=== PATIENT | male | born 2000 | race Caucasian/White ===

== ENCOUNTER 2023-04-30 01:28 | Observation (INO) ==
[2023-04-30] MEDS ORDERED: ONDANSETRON INJ 2 MG/ML 2 ML VIAL IV STA (01:49)
[2023-04-30] MEDS ORDERED: PANTOprazole 40 MG in SYRINGE 0 ML IV ONE (01:49)
[2023-04-30] MEDS ORDERED: SODIUM CHLORIDE 0.9% 1,000 ML IV STA (01:49)
[2023-04-30 02:12] LABS: Basophils # (auto) 0.04 K/uL (0.00-0.20); Basophils % (auto) 0.3 %; Eosinophils # (auto) 0.01 K/uL (0.00-0.50); Eosinophils % (auto) 0.1 %; Hematocrit (blood only) 40.7 % (42.0-52.0); Hemoglobin 14.5 g/dl (14.0-18.0); Immature Granulocytes # (auto) 0.05 K/uL (0.01-0.20); Immature Granulocytes % (auto) 0.4 %; Lymphocytes # (auto) 1.26 K/uL (1.20-3.40); Lymphocytes % (auto) 9.2 %; Mean Corpuscular Hemoglobin 30.5 pg (25.0-34.0); Mean Corpuscular Hgb Conc 35.6 g/dL (32.0-36.0); Mean Corpuscular Volume 85.5 fL (80.0-100.0); Mean Platelet Volume 9.7 fL (9.4-12.4); Monocytes # (auto) 0.39 K/uL (0.11-0.59); Monocytes % (auto) 2.8 %; Neutrophils # (auto) 11.95 K/uL (1.40-6.50); Neutrophils % (auto) 87.2 %; Platelet Count 247 K/uL (130-400); RDW Standard Deviation 34.2 fL (36.4-46.3); Red Blood Count 4.76 M/uL (4.70-6.10)
--- NOTE | 2023-04-30 02:17 | CT Scan Report ---
CT SCAN OF THE ABDOMEN AND PELVIS WITHOUT IV CONTRAST CLINICAL HISTORY: Lower abdominal pain. COMPARISON STUDY: Abdominal radiograph dated 06/24/2020 TECHNIQUE: CT scan of the abdomen and pelvis is performed from the lung bases to the proximal femora. Images are reviewed in the axial, sagittal, and coronal planes. IV contrast was not administered for this examination. A dose lowering technique was utilized adhering to the principles of ALARA. CT DOSE: 933.44 mGy.cm FINDINGS: Lung bases: The heart is normal in size and without pericardial effusion. The lung bases are clear. Liver: The unenhanced liver is normal in size, contour, and attenuation. There is no intrahepatic juanjo iary ductal dilatation. Gallbladder: Unremarkable. Spleen: Normal in size and attenuation. Pancreas: Unremarkable. Adrenal glands: Unremarkable. Kidneys: The unenhanced kidneys are normal in size and without hydronephrosis. There are no renal vicki culi identified. There is no evidence of contour deforming renal mass lesion. Abdominal vasculature: The abdominal aorta is normal in course and caliber. Bowel: The small bowel and colon are normal in course and caliber. The appendix is dilated and fluid -filled, measuring up to 1.4 cm in diameter. This is best seen on image #252. There are calcified rima endicoliths. The appendiceal wall is thickened and there is faint periappendiceal inflammation. Findi ngs are consistent acute appendicitis. No abscess is seen. Peritoneum: No intraperitoneal free air is seen. There is trace free fluid in the pelvis. Lymphadenopathy: None. Pelvic viscera: The bladder, prostate, and seminal vesicles are normal as visualized. Skeletal structures: No lytic or blastic lesions are seen. IMPRESSION: 1. Acute appendicitis. There is no evidence of abscess or perforation. 2. A small volume of free fluid in the pelvis is nonspecific and likely reactive. ACT 112: Negative or not required by law. Electronically signed by: Juan Antonio Benitez M.D. 04/30/2023 2:15 AM
[2023-04-30 02:20] LABS: Alanine Aminotransferase 21 U/L (7-52); Albumin Globulin Ratio 1.5 (0.9-2); Alkaline Phosphatase 74 U/L (34-104); Anion Gap 15 (3-11); Aspartate Aminotransferase 27 U/L (13-39); BUN Creatinine Ratio 22.8 (10-20); Bilirubin,Total 0.7 mg/dl (0.2-1.0); Blood Urea Nitrogen 23 mg/dl (6-23); Calcium 10.3 mg/dl (8.6-10.3); Carbon Dioxide 20 mmol/L (21-32); Chloride 102 mmol/L (98-107); Est GFR (African American) 120.9 ml/min; Est GFR (Non-African American) 104.4 ml/min; Globulin 3.3 gm/dl (2.5-4.0); Glucose 148 mg/dl (70-99(Fasting)); Lipase 17 U/L (11-82); Potassium 3.4 mmol/L (3.5-5.1); Sodium 137 mmol/L (136-145); Total Protein 8.3 gm/dl (6.0-8.3)
[2023-04-30 02:26] LABS: Troponin I High Sensitivity 2.9 pg/ml (0-20)
[2023-04-30] MEDS ORDERED: cefOXitin 2,000 MG/60 ML BAG IV STA (02:37)
[2023-04-30] MEDS: MoRPHine SULFATE 4 MG/ML 1 ML CARP\\VIAL IV PRN ×2 (02:55→05:03)
--- NOTE | 2023-04-30 04:53 | History & Physical Report ---
Date of Service April 30, 2023 Assessment & Plan (1) Acute appendicitis: Plan 23-year-old gentleman presents with acute appendicitis. We discussed the risks and benefits of a laparoscopic, possible open appendectomy. We discussed the postoperative recovery and restrictions. All his questions were answered. Consent has been obtained. We will take him to the operating room at the earliest convenience. History of Present Illness Primary Care Provider: [facility] 23-year-old [employer] student presents with a 10-hour history of severe mid to right lower abdominal pain. It began as a crampy type feeling in his mid abdomen and progressed to severe abdominal pain. He developed severe nausea and vomiting as well as chills. He last ate at 5 PM. He has a bicuspid aortic valve. He denies chest pain or shortness of breath. He does heavy exercise without issue. He has had a prior hernia repair bilaterally as an . Allergies Allergy/AdvReac Type Severity Reaction Status Date / Time No Known Allergies Allergy Unverified 04/30/23 02:35 Home Medications Medication Instructions Recorded Confirmed Type No Known Home Medications 09/10/19 04/30/23 History Past Med/Surg History Medical History (Updated 04/30/23 @ 04:54 by David Regalado MD) No pertinent past medical history Surgical History No pertinent past surgical history Family History Other No pertinent family history Social History Smoking Status: Never smoker Tobacco Type: Cigarettes and E-cigarettes / Vaping Preferred Language: Turkmen Feels Safe at Home: Yes Review of Systems Review of Systems: All systems reviewed & are unremarkable except as noted in HPI & below Physical Exam Constitutional: WD/WN, vitals as above Eyes: PERRL, conjunctivae normal, anicteric sclerae Neck: trachea midline, no thyromegaly Respiratory: normal respiratory effort; no respiratory distress and no labored breathing Cardiovascular: Rate/Rhythm: regular rate and regular rhythm Gastrointestinal (Abdomen): Inspection/Auscultation: abdomen normal to inspection; abdomen not distended Percussion/Palpation: + abdomen tender (Lower abdomen) and abdomen soft; no guarding and abdomen not rigid Skin: no rashes, warm and dry Psychiatric: A+Ox3, euthymic affect Results & Data Results & Data Vital Signs (Past 12 Hours) Vital Signs Temp Pulse Resp BP Pulse Ox O2 Del Method 04/30/23 03:30 59 L 19 124/45 L 100 04/30/23 03:00 62 23 138/60 100 04/30/23 02:30 52 L 20 132/62 100 04/30/23 01:42 58 L 26 H 100 04/30/23 01:42 127/52 L 04/30/23 01:49 97 Room Air 04/30/23 01:41 58 L 04/30/23 01:33 35.5 C L 67 22 99/28 L 100 Room Air Laboratory Results 04/30/23 04/30/23 04/30/23 Range/Units 02:33 01:44 01:44 WBC (4.8-10.8) K/ul RBC (4.70-6.10) M/uL Hgb (14.0-18.0) g/dl Hct (42.0-52.0) % MCV (80.0-100.0) fL MCH (25.0-34.0) pg MCHC (32.0-36.0) g/dL RDW Std Deviation (36.4-46.3) fL RDW Coeff of Nathalie (11.5-14.5) % Plt Count (130-400) K/uL MPV (9.4-12.4) fL Immature Gran % (Auto) % Neut % (Auto) % Lymph % (Auto) % [place] % (Auto) % Eos % (Auto) % Baso % (Auto) % Neut # (Auto) (1.40-6.50) K/uL Lymph # (Auto) (1.20-3.40) K/uL [place] # (Auto) (0.11-0.59) K/uL Eos # (Auto) (0.00-0.50) K/uL Baso # (Auto) (0.00-0.20) K/uL Immature Gran # (Auto) (0.01-0.20) K/uL Sodium 137 (136-145) mmol/L Potassium 3.4 L (3.5-5.1) mmol/L Chloride 102 (98-107) mmol/L Carbon Dioxide 20 L (21-32) mmol/L Anion Gap 15 H (3-11) BUN 23 (6-23) mg/dl Creatinine 1.01 (0.6-1.4) mg/dl Est Cr Clr Drug Dosing Not Reportable Est GFR ( Amer) 120.9 ml/min Est GFR (Non-Af Amer) 104.4 ml/min BUN/Creatinine Ratio 22.8 H (10-20) Glucose 148 H (70-99(Fasting)) mg/dl Lactate 1.7 (0.4-2.0) mmol/L Calcium 10.3 (8.6-10.3) mg/dl Total Bilirubin 0.7 (0.2-1.0) mg/dl AST 27 (13-39) U/L ALT 21 (7-52) U/L Alkaline Phosphatase 74 (34-104) U/L Troponin I High Sens 2.9 (0-20) pg/ml Total Protein 8.3 (6.0-8.3) gm/dl Albumin 5.0 (3.4-5.0) gm/dl Globulin 3.3 (2.5-4.0) gm/dl Albumin/Globulin Ratio 1.5 (0.9-2) Lipase 17 (11-82) U/L Ethyl Alcohol mg/dL < 10.0 (<10.0) mg/dl 04/30/23 Range/Units 01:44 WBC 13.70 H (4.8-10.8) K/ul RBC 4.76 (4.70-6.10) M/uL Hgb 14.5 (14.0-18.0) g/dl Hct 40.7 L (42.0-52.0) % MCV 85.5 (80.0-100.0) fL MCH 30.5 (25.0-34.0) pg MCHC 35.6 (32.0-36.0) g/dL RDW Std Deviation 34.2 L (36.4-46.3) fL RDW Coeff of Nathalie 11.0 L (11.5-14.5) % Plt Count 247 (130-400) K/uL MPV 9.7 (9.4-12.4) fL Immature Gran % (Auto) 0.4 % Neut % (Auto) 87.2 % Lymph % (Auto) 9.2 % [place] % (Auto) 2.8 % Eos % (Auto) 0.1 % Baso % (Auto) 0.3 % Neut # (Auto) 11.95 H (1.40-6.50) K/uL Lymph # (Auto) 1.26 (1.20-3.40) K/uL [place] # (Auto) 0.39 (0.11-0.59) K/uL Eos # (Auto) 0.01 (0.00-0.50) K/uL Baso # (Auto) 0.04 (0.00-0.20) K/uL Immature Gran # (Auto) 0.05 (0.01-0.20) K/uL Sodium (136-145) mmol/L Potassium (3.5-5.1) mmol/L Chloride (98-107) mmol/L Carbon Dioxide (21-32) mmol/L Anion Gap (3-11) BUN (6-23) mg/dl Creatinine (0.6-1.4) mg/dl Est Cr Clr Drug Dosing Est GFR ( Amer) ml/min Est GFR (Non-Af Amer) ml/min BUN/Creatinine Ratio (10-20) Glucose (70-99(Fasting)) mg/dl Lactate (0.4-2.0) mmol/L Calcium (8.6-10.3) mg/dl Total Bilirubin (0.2-1.0) mg/dl AST (13-39) U/L ALT (7-52) U/L Alkaline Phosphatase (34-104) U/L Troponin I High Sens (0-20) pg/ml Total Protein (6.0-8.3) gm/dl Albumin (3.4-5.0) gm/dl Globulin (2.5-4.0) gm/dl Albumin/Globulin Ratio (0.9-2) Lipase (11-82) U/L Ethyl Alcohol mg/dL (<10.0) mg/dl Diagnostic Findings CT SCAN OF THE ABDOMEN AND PELVIS WITHOUT IV CONTRAST CLINICAL HISTORY: Lower abdominal pain. COMPARISON STUDY: Abdominal radiograph dated 06/24/2020 TECHNIQUE: CT scan of the abdomen and pelvis is performed from the lung bases to the proximal femora. Images are reviewed in the axial, sagittal, and coronal planes. IV contrast was not administered for this examination. A dose lowering technique was utilized adhering to the principles of ALARA. CT DOSE: 933.44 mGy.cm FINDINGS: Lung bases: The heart is normal in size and without pericardial effusion. The lung bases are clear. Liver: The unenhanced liver is normal in size, contour, and attenuation. There is no intrahepatic biliary ductal dilatation. Gallbladder: Unremarkable. Spleen: Normal in size and attenuation. Pancreas: Unremarkable. Adrenal glands: Unremarkable. Kidneys: The unenhanced kidneys are normal in size and without hydronephrosis. There are no renal calculi identified. There is no evidence of contour deforming renal mass lesion. Abdominal vasculature: The abdominal aorta is normal in course and caliber. Bowel: The small bowel and colon are normal in course and caliber. The appendix is dilated and fluid-filled, measuring up to 1.4 cm in diameter. This is best seen on image #252. There are calcified appendicoliths. The appendiceal wall is thickened and there is faint periappendiceal inflammation. Findings are consistent acute appendicitis. No abscess is seen. Peritoneum: No intraperitoneal free air is seen. There is trace free fluid in the pelvis. Lymphadenopathy: None. Pelvic viscera: The bladder, prostate, and seminal vesicles are normal as visua lized. Skeletal structures: No lytic or blastic lesions are seen. IMPRESSION: 1. Acute appendicitis. There is no evidence of abscess or perforation. 2. A small volume of free fluid in the pelvis is nonspecific and likely reactive.
[2023-04-30] MEDS ORDERED: LIDOCAINE 2% 2 ML VIAL/AMP(20MG/ML) INFIL ONE (05:18)
[2023-04-30] MEDS ORDERED: PROPOFOL IV EMULSION 10 MG/ML 20 ML VIAL IV ONE (05:18)
[2023-04-30] MEDS ORDERED: fentaNYL citrate PF 100 MCG/2 ML VIAL ONE (05:19)
[2023-04-30] MEDS ORDERED: ROCURONIUM BROMIDE 10 MG/ML 5 ML VIAL IV ONE (05:23)
[2023-04-30] MEDS ORDERED: BUPIVACAINE/EPINEPHRINE 0.5% MPF 1:200,000 30 ML VIAL ONE (05:26)
[2023-04-30] MEDS ORDERED: ONDANSETRON INJ 2 MG/ML 2 ML VIAL IV PRN ×2 (05:31→08:09)
[2023-04-30] MEDS ORDERED: ATROPINE SULFATE 0.1 MG/ML 10ML SYR IV PRN (05:31)
[2023-04-30] MEDS ORDERED: fentaNYL citrate PF 100 MCG/2 ML VIAL IV PRN (05:31)
[2023-04-30] MEDS ORDERED: ePHEDrine sulfate 50 MG/ML AMP IV PRN (05:31)
--- NOTE | 2023-04-30 05:38 | Anesthesiology Consultation ---
Date of Service April 30, 2023 Assessment & Plan Chart Review Chart Review: Acceptable Risk for Surgery Consults Requested none ASA [id number] Proposed Anesthesia Anesthesia Type: General Risk / Benefits Reviewed With: PT / POA / Parent / Guardian, Accepts Plan and Informed Consent Obtained History Surgery Operation Date: 04/30/23 06:00 Proposed Procedures p Laparoscopic Appendectomy - David Regalado MD Height/Weight Height: 6 ft Allergies Allergy/AdvReac Type Severity Reaction Status Date / Time No Known Allergies Allergy Unverified 04/30/23 02:35 Medications Home Medications Medication Instructions Recorded Confirmed Last Taken No Known Home Medications 09/10/19 04/30/23 Unknown Active Medications Generic Name Dose Route Start Last Admin Trade Name Freq PRN Reason Stop Dose Admin Morphine Sulfate 4 mg 04/30/23 01:49 04/30/23 05:03 Morphine Sulfate 4 Mg/Ml 1 Ml Carp\Vial IV 05/14/23 01:48 4 mg Q15M PRN Administration Pain NPO Date Last Intake of Fluids: 04/29/23 Time Last Intake of Fluids: 20:00 Date Last Intake of Solids: 04/29/23 Time Last Intake of Solids: 20:00 Past Medical History Medical History No pertinent past medical history Exercise / Class Metabolic Activity 1 > 8 Run/Swim/Ski/Tennis Past Family History Family History Other No pertinent family history Past Surgical History Surgical History No pertinent past surgical history Past Anesthesia History No Hx of Anesthesia Complications and No Family Hx of Anesthesia Complications History of PONV No Hx of PONV and No Hx of Motion Sickness Social History Smoking Status: Never smoker tobacco type: e-cigarettes Physical Exam Vital Signs Last Vital Signs Temp 95.9 F L 04/30/23 01:33 Pulse 59 L 04/30/23 03:30 Resp 19 04/30/23 03:30 BP 128/74 04/30/23 05:00 Pulse Ox 100 04/30/23 03:30 O2 Del Method Room Air 04/30/23 05:21 ENMT Mouth: no dentition abnormality Thyromental Distance: > or= 3.5 Finger Breadths Mallampati Class: II Neck normal visual inspection Respiratory normal respiratory effort Auscultation: lungs clear to auscultation bilaterally Cardiovascular Rate/Rhythm: regular rate and regular rhythm Testing Laboratory Results 04/30/23 01:44 04/30/23 01:44
[2023-04-30] MEDS ORDERED: SUCCINYLCHOLINE CHLORIDE 20 MG/ML 10 ML VIAL IV ONE (06:07)
[2023-04-30] MEDS ORDERED: ONDANSETRON INJ 2 MG/ML 2 ML VIAL ONE (06:07)
[2023-04-30] MEDS ORDERED: GLYCOPYRROLATE 0.2 MG/ML VIAL ONE (06:31)
[2023-04-30] MEDS ORDERED: NEOSTIGMINE METHYLSULFATE 1 MG/ML 10ML VIAL ONE (06:31)
--- NOTE | 2023-04-30 06:42 | Post Operative Brief Note ---
Immediate Post Op Note v1 Date of Surgery April 30, 2023 Pre & Post Diagnosis Operation Date: 04/30/23 06:00 Pre-Op Diagnosis: Acute appendicitis Post-Op Diagnosis: Acute appendicitis I identified the patient and participated in the time-out.: Yes Procedure Operation Date: 04/30/23 06:00 Actual Procedures p Laparoscopic Appendectomy - David Regalado MD Surgeon David Regalado MD Media Services Coordinator None Estimated Blood Loss 5 Findings Consistent with Post-Op Diagnosis Thick-walled distended appendix Drains Goodson Catheter (goodson catheter inserted prior to procedure without difficulty by Sangeetha Doty, TUMBLER DYEING MACHINE OPERATOR. Urine return clear, yellow.)
--- NOTE | 2023-04-30 06:42 | Operative Report ---
Post Operative Report Pre & Post Diagnosis Operation Date: 04/30/23 06:00 Pre-Op Diagnosis: Acute appendicitis Post-Op Diagnosis: Acute appendicitis I identified the patient and participated in the time-out.: Yes Procedure Operation Date: 04/30/23 06:00 Actual Procedures p Laparoscopic Appendectomy - David Regalado MD Surgeon David Regalado MD Per Diem None Estimated Blood Loss 5 Findings Consistent with Post-Op Diagnosis Thick-walled, distended appendix Specimens Appendix Drains None Anesthesia Type General Complications No immediate complications Description of Procedure The patient was taken to the operating room, and placed supine on the operating table. A timeout was performed, perioperative antibiotics were administered, SCD boots were placed. After adequate anesthesia and analgesia was obtained, the abdomen was prepped and draped in the normal sterile fashion. A 1 cm incision was made in the supraumbilical region and carried down to the level of the fascia. A trach hook was used to grasp the fascia and elevated and a varies needle was used to enter the abdominal cavity. The abdomen was insufflated to a pressure of 15 mmHg, and a 5 mm trocar was placed in this location. A 5 mm 30 degree laparoscope was placed into the abdominal cavity, and the abdomen was surveyed. The patient was placed in Trendelenburg and slightly to the left. One 5 mm troc ar was placed in the right upper quadrant, and one 12 mm trocar was placed in the left lower quadrant under direct visualization. The right colon was identified and traced down to the cecum. The appendix was identified and elevated anteriorly and medially. A window was created at the base of the appendix with a [place] dissector. The Endo DENIS stapler was used to transect the appendix at its base through noninflamed tissue, and subsequently the mesoappendix. The appendix was placed in an Endo Catch bag, and removed via the left lower quadrant port site. Attention was turned to hemostasis, which was excellent. The abdomen was copiously irrigated and suctioned free, and again hemostasis was found to be excellent. All trochars removed under direct visualization. The abdomen was desufflated. The fascia in the 12 mm port site was closed with a 0 Vicryl suture. The skin was closed with a running 4-0 Monocryl subcuticular stitch. Dermabond was applied. The patient tolerated the procedure without complication, and was transferred in stable condition to the PACU. All instrument, needle, and sponge counts were correct at the end of the case. I attest to the content of the Intraoperative Record and any orders documented therein. Any exceptions are noted below.
--- NOTE | 2023-04-30 07:05 | Emergency Department Note ---
History of Present Illness General Chief complaint: Abdominal Pain Stated complaint: ABD PAIN Time Seen by Provider: 04/30/23 01:40 History of Present Illness Maximum Pain Intensity: 10 This is a 23-year-old male presenting to the emergency department for evaluation of abdominal pain. Patient rates the discomfort a 10/10, and is causing him significant nausea and vomiting. Pain is worse in the mid aspect of the upper abdomen. Patient denies marijuana or alcohol use. No recent fevers or chills. Patient's symptoms have been slowly worsening over the past 4 to 5 hours. He last ate food around 5 PM on 04/29/2023. Patient states that he is usually healthy. He does have a bicuspid aortic valve. No known travel history. He has not taken anything [id number] for symptoms. Home Medications Medication Instructions Recorded Confirmed Type No Known Home Medications 09/10/19 04/30/23 History Allergies Allergy/AdvReac Type Severity Reaction Status Date / Time No Known Allergies Allergy Unverified 04/30/23 02:35 Past Med/Surg History Medical History (Updated 04/30/23 @ 07:04 by Poncho Greenberg PA-C) No pertinent past medical history Surgical History No pertinent past surgical history Family History Other No pertinent family history Social History Smoking Status: Never smoker Tobacco Type: Cigarettes and E-cigarettes / Vaping Preferred Language: [place] Feels Safe at Home: Yes Review of Systems A total of 10 systems reviewed and were otherwise negative Physical Exam Vital Signs Vital Signs - 24 hr 04/30/23 01:33 04/30/23 01:41 04/30/23 01:49 Temperature 35.5 C L Temperature Source Temporal Artery Scan Pulse Rate 67 58 L Pulse Rate from SpO2 Sensor Respiratory Rate 22 Blood Pressure 99/28 L Blood Pressure Mean 51 Pulse Oximetry 100 97 Oxygen Delivery Method Room Air Room Air Sepsis Recent Fever Within 48 Hours No Sepsis New/Unexplained Change in Mental Status No Sepsis Action Taken by Nursing No Action Required 04/30/23 01:42 04/30/23 01:42 04/30/23 02:30 Temperature Temperature Source Pulse Rate 58 L 52 L Pulse Rate from SpO2 Sensor 58 L Respiratory Rate 26 H 20 Blood Pressure 127/52 L 132/62 Blood Pressure Mean 70 85 Pulse Oximetry 100 100 Oxygen Delivery Method Sepsis Recent Fever Within 48 Hours Sepsis New/Unexplained Change in Mental Status Sepsis Action Taken by Nursing 04/30/23 03:00 04/30/23 03:30 04/30/23 05:21 Temperature Temperature Source Pulse Rate 62 59 L Pulse Rate from SpO2 Sensor Respiratory Rate 23 19 Blood Pressure 138/60 124/45 L Blood Pressure Mean 86 71 Pulse Oximetry 100 100 Oxygen Delivery Method Room Air Sepsis Recent Fever Within 48 Hours Sepsis New/Unexplained Change in Mental Status Sepsis Action Taken by Nursing 04/30/23 04:00 04/30/23 04:30 04/30/23 05:00 Temperature Temperature Source Pulse Rate Pulse Rate from SpO2 Sensor Respiratory Rate Blood Pressure 121/45 L 133/61 128/74 Blood Pressure Mean 65 84 74 Pulse Oximetry Oxygen Delivery Method Sepsis Recent Fever Within 48 Hours Sepsis New/Unexplained Change in Mental Status Sepsis Action Taken by Nursing VITALS: Vitals are noted on the nurse's note and reviewed by myself. Vital signs stable. GENERAL: Well-developed, well-nourished, white male, who is ill-appearing on presentation. MOUTH: Mucous membranes moist. Tonsils are not enlarged. Pharynx without erythema, blood, or exudate. Uvula midline. Airway patent. NECK: Supple without nuchal rigidity. No lymphadenopathy. No thyromegaly. Cervical spine is nontender. HEART: Regular rate and rhythm without murmurs gallops or rubs. LUNGS: Clear to auscultation bilaterally without wheezes, rales or rhonchi. No retractions or accessory muscle use. ABDOMEN: Positive normal bowel sounds x 4. Soft with tenderness in the epigastric region. He is guarding in this area. Course Administered Medications Morphine Sulfate (Morphine Sulfate 4 Mg/Ml 1 Ml Carp\Vial) 4 mg IV Q15M PRN PRN Reason: Pain Stop: 05/14/23 01:48 Last Admin: 04/30/23 05:03 Dose: 4 mg Documented By: Admin: 04/30/23 02:55 Dose: 4 mg Documented By: NATIVIDAD Discontinued Medications Bupivacaine HCl/Epinephrine Bitart (Bupivacaine/Epinephrine 0.5% Mpf 1:200,000 30 Ml Vial) Confirm Administered Dose 30 ml .ROUTE .STK-MED ONE Stop: 04/30/23 05:27 Last Admin: 04/30/23 06:40 Dose: 25 ml Documented By: CHRISTO Sodium Chloride (Nss) 1,000 mls @ 999 mls/hr IV .Q1H1M STA Stop: 04/30/23 02:49 Last Infusion: 04/30/23 03:21 Dose: 0 mls/hr Documented By: Admin: 04/30/23 02:11 Dose: 999 mls/hr Documented By: NATIVIDAD Pantoprazole Sodium 40 mg/ (Syringe) 10 mls @ 5 mls/min IV NOW ONE Stop: 04/30/23 01:50 Last Admin: 04/30/23 03:17 Dose: 5 mls/min Documented By: NATIVIDAD Cefoxitin Sodium (Mefoxin) 2,000 mg in 60 mls @ 100 mls/hr IV NOW STA Stop: 04/30/23 03:12 Last Infusion: 04/30/23 03:49 Dose: 0 mls/hr Documented By: Admin: 04/30/23 02:55 Dose: 100 mls/hr Documented By: NATIVIDAD Ondansetron HCl (Ondansetron Inj 2 Mg/Ml 2 Ml Vial) 4 mg IV NOW STA Stop: 04/30/23 01:50 Last Admin: 04/30/23 02:11 Dose: 4 mg Documented By: NATIVIDAD Medical Decision Making Differential Diagnosis Differential diagnosis: Etiologies such as biliary colic, cholecystitis, hepatitis, pancreatitis, cardiac disease, pancreatitis, gastritis, peptic ulcer disease, appendicitis, cystitis, diverticulitis, mesenteric ischemia, inflammatory bowel disease, i leus, bowel obstruction, testicular/adnexal torsion, aortic pathology, shingles, as well as others were considered Laboratory Data 04/30/23 01:44 04/30/23 01:44 Lab Results 04/30/23 04/30/23 04/30/23 Range/Units 01:44 01:44 01:44 WBC 13.70 H (4.8-10.8) K/ul RBC 4.76 (4.70-6.10) M/uL Hgb 14.5 (14.0-18.0) g/dl Hct 40.7 L (42.0-52.0) % MCV 85.5 (80.0-100.0) fL MCH 30.5 (25.0-34.0) pg MCHC 35.6 (32.0-36.0) g/dL RDW Std Deviation 34.2 L (36.4-46.3) fL RDW Coeff of Nathalie 11.0 L (11.5-14.5) % Plt Count 247 (130-400) K/uL MPV 9.7 (9.4-12.4) fL Immature Gran % (Auto) 0.4 % Neut % (Auto) 87.2 % Lymph % (Auto) 9.2 % [place] % (Auto) 2.8 % Eos % (Auto) 0.1 % Baso % (Auto) 0.3 % Neut # (Auto) 11.95 H (1.40-6.50) K/uL Lymph # (Auto) 1.26 (1.20-3.40) K/uL [place] # (Auto) 0.39 (0.11-0.59) K/uL Eos # (Auto) 0.01 (0.00-0.50) K/uL Baso # (Auto) 0.04 (0.00-0.20) K/uL Immature Gran # (Auto) 0.05 (0.01-0.20) K/uL Sodium 137 (136-145) mmol/L Potassium 3.4 L (3.5-5.1) mmol/L Chloride 102 (98-107) mmol/L Carbon Dioxide 20 L (21-32) mmol/L Anion Gap 15 H (3-11) BUN 23 (6-23) mg/dl Creatinine 1.01 (0.6-1.4) mg/dl Est Cr Clr Drug Dosing Not Reportable Est GFR ( Amer) 120.9 ml/min Est GFR (Non-Af Amer) 104.4 ml/min BUN/Creatinine Ratio 22.8 H (10-20) Glucose 148 H (70-99(Fasting)) mg/dl Lactate (0.4-2.0) mmol/L Calcium 10.3 (8.6-10.3) mg/dl Total Bilirubin 0.7 (0.2-1.0) mg/dl AST 27 (13-39) U/L ALT 21 (7-52) U/L Alkaline Phosphatase 74 (34-104) U/L Troponin I High Sens 2.9 (0-20) pg/ml Total Protein 8.3 (6.0-8.3) gm/dl Albumin 5.0 (3.4-5.0) gm/dl Globulin 3.3 (2.5-4.0) gm/dl Albumin/Globulin Ratio 1.5 (0.9-2) Lipase 17 (11-82) U/L Ethyl Alcohol mg/dL < 10.0 (<10.0) mg/dl 04/30/23 Range/Units 02:33 WBC (4.8-10.8) K/ul RBC (4.70-6.10) M/uL Hgb (14.0-18.0) g/dl Hct (42.0-52.0) % MCV (80.0-100.0) fL MCH (25.0-34.0) pg MCHC (32.0-36.0) g/dL RDW Std Deviation (36.4-46.3) fL RDW Coeff of Nathalie (11.5-14.5) % Plt Count (130-400) K/uL MPV (9.4-12.4) fL Immature Gran % (Auto) % Neut % (Auto) % Lymph % (Auto) % [place] % (Auto) % Eos % (Auto) % Baso % (Auto) % Neut # (Auto) (1.40-6.50) K/uL Lymph # (Auto) (1.20-3.40) K/uL [place] # (Auto) (0.11-0.59) K/uL Eos # (Auto) (0.00-0.50) K/uL Baso # (Auto) (0.00-0.20) K/uL Immature Gran # (Auto) (0.01-0.20) K/uL Sodium (136-145) mmol/L Potassium (3.5-5.1) mmol/L Chloride (98-107) mmol/L Carbon Dioxide (21-32) mmol/L Anion Gap (3-11) BUN (6-23) mg/dl Creatinine (0.6-1.4) mg/dl Est Cr Clr Drug Dosing Est GFR ( Amer) ml/min Est GFR (Non-Af Amer) ml/min BUN/Creatinine Ratio (10-20) Glucose (70-99(Fasting)) mg/dl Lactate 1.7 (0.4-2.0) mmol/L Calcium (8.6-10.3) mg/dl Total Bilirubin (0.2-1.0) mg/dl AST (13-39) U/L ALT (7-52) U/L Alkaline Phosphatase (34-104) U/L Troponin I High Sens (0-20) pg/ml Total Protein (6.0-8.3) gm/dl Albumin (3.4-5.0) gm/dl Globulin (2.5-4.0) gm/dl Albumin/Globulin Ratio (0.9-2) Lipase (11-82) U/L Ethyl Alcohol mg/dL (<10.0) mg/dl Imaging Data Radiologist's Impression: Abdomen/Pelvis CT 04/30/23 01:49 CT SCAN OF THE ABDOMEN AND PELVIS WITHOUT IV CONTRAST CLINICAL HISTORY: Lower abdominal pain. COMPARISON STUDY: Abdominal radiograph dated 06/24/2020 TECHNIQUE: CT scan of the abdomen and pelvis is performed from the lung bases to the proximal femora. Images are reviewed in the axial, sagittal, and coronal planes. IV contrast was not administered for this examination. A dose lowering technique was utilized adhering to the principles of ALARA. CT DOSE: 933.44 mGy.cm FINDINGS: Lung bases: The heart is normal in size and without pericardial effusion. The lung bases are clear. Liver: The unenhanced liver is normal in size, contour, and attenuation. There is no intrahepatic biliary ductal dilatation. Gallbladder: Unremarkable. Spleen: Normal in size and attenuation. Pancreas: Unremarkable. Adrenal glands: Unremarkable. Kidneys: The unenhanced kidneys are normal in size and without hydronephrosis. There are no renal calculi identified. There is no evidence of contour deforming renal mass lesion. Abdominal vasculature: The abdominal aorta is normal in course and caliber. Bowel: The small bowel and colon are normal in course and caliber. The appendix is dilated and fluid-filled, measuring up to 1.4 cm in diameter. This is best seen on image #252. There are calcified appendicoliths. The appendiceal wall is thickened and there is faint periappendiceal inflammation. Findings are consistent acute appendicitis. No abscess is seen. Peritoneum: No intraperitoneal free air is seen. There is trace free fluid in the pelvis. Lymphadenopathy: None. Pelvic viscera: The bladder, prostate, and seminal vesicles are normal as visualized. Skeletal structures: No lytic or blastic lesions are seen. IMPRESSION: 1. Acute appendicitis. There is no evidence of abscess or perforation. 2. A small volume of free fluid in the pelvis is nonspecific and likely reactive. ACT 112: Negative or not required by law. Electronically signed by: Juan Antonio Benitez M.D. 04/30/2023 2:15 AM [facility] Narrative Physical exam and history were performed. Nursing notes, EMR, and Medication List were personally reviewed. No social concerns were identified as barriers to patients care. Patient appears to have nausea, vomiting, and abdominal pain bringing him to the ER. He is quite uncomfortable appearing on presentation and is guarding palpation in the abdomen. IV access was established and labs were obtained. He was hydrated with normal saline and given IV morphine, IV Zofran, and Protonix for his symptoms. He was sent to CT scan for imaging. Patient's blood work is as above and was reviewed. He does have an elevated white count of 13.7. He is without significant anemia or gross electrolyte imbalance. Lactic is negative. Transaminases are not diagnostic. Troponin is negative. CT scan was reviewed by myself and radiology, and is consistent with acute appendicitis. This would explain the patient's discomfort. Patient was kept n.p.o. and given Mefoxin here in the ER. Case was discussed with the on-call surgeon, Dr. Regalado, who did evaluate the patient here in the ER. Please see Dr. Regalado's dictation for further patient course, plan, and disposition. The chart was completed utilizing [employer] Voice Recognition Software. Grammatical errors, random word insertions, pronoun errors, and incomplete sentences are an occasional consequence of this system due to software limitations, ambient noise, and hardware issues. Any formal questions or concerns about the content, text, or information contained within the body of this dictation should be directly addressed to the provider for clarification. . Impression & Plan Acute appendicitis Discharge Plan Visit Data Chief Complaint: Abdominal Pain Stated Complaint: ABD PAIN ED Provider: Hien Delarosa ED Midlevel Provider: Poncho Greenberg Discharge Problem: Acute appendicitis Patient Disposition: Admitted As Inpatient Discharge Instructions Interventions: ED Discharge Assessment Last Done: 04/30/23 05:21
[2023-04-30] MEDS ORDERED: PROMETHAZINE HCL 12.5 MG in SODIUM CHLORIDE 0.9% 50 ML IV PRN (08:09)
[2023-04-30] MEDS ORDERED: KETOROLAC 30 MG/ML VIAL IV PRN (08:09)
[2023-04-30] MEDS ORDERED: MoRPHine SULFATE 2 MG/ML CARP IV PRN (08:09)
[2023-04-30] MEDS ORDERED: diphenhydrAMINE Capsule 25 MG CAP PO PRN (08:09)
[2023-04-30] MEDS ORDERED: oxyCODONE/ACETAMINOPHEN 5mg/325mg TAB PO PRN (08:09)
[2023-04-30] MEDS ORDERED: ACETAMINOPHEN 325 MG TAB PO PRN (08:16)
[2023-04-30] MEDS ORDERED: Patient's HEIGHT &/or WEIGHT Needed SCH (08:30)
[2023-04-30] MEDS ORDERED: IBUPROFEN 600 MG TAB PO PRN (11:47)
--- NOTE | 2023-04-30 12:32 | Anesthesiology Progress Note ---
Date of Service April 30, 2023 Anesthesia Post Procedure Vital Signs Vital Signs: Temp Pulse Pulse Pulse Resp BP BP 04/30/23 11:12 36.8 C 85 18 123/55 L 04/30/23 10:17 36.6 C 65 16 123/64 04/30/23 09:11 37.3 C 54 L 16 135/53 L 04/30/23 08:41 36.7 C 88 18 114/49 L 04/30/23 08:13 36.9 C 56 L 16 144/65 H 04/30/23 08:11 36.9 C 56 L 16 144/65 H 04/30/23 07:33 65 17 132/66 04/30/23 07:23 53 L 16 135/67 04/30/23 07:13 58 L 17 110/53 L 04/30/23 07:03 53 L 17 123/62 04/30/23 06:53 36.5 C 75 17 139/63 04/30/23 05:00 128/74 04/30/23 04:30 133/61 04/30/23 04:00 121/45 L 04/30/23 05:21 04/30/23 03:30 59 L 19 124/45 L 04/30/23 03:00 62 23 138/60 04/30/23 02:30 52 L 20 132/62 04/30/23 01:42 58 L 26 H 04/30/23 01:42 127/52 L 04/30/23 01:49 04/30/23 01:41 58 L 04/30/23 01:33 35.5 C L 67 22 99/28 L Pulse Ox O2 Del Method 04/30/23 11:12 98 Room Air 04/30/23 10:17 97 Room Air 04/30/23 09:11 96 Room Air 04/30/23 08:41 98 Room Air 04/30/23 08:13 96 Room Air 04/30/23 08:11 96 Room Air 04/30/23 07:33 98 Room Air 04/30/23 07:23 96 Room Air 04/30/23 07:13 98 Room Air 04/30/23 07:03 99 Room Air 04/30/23 06:53 99 Room Air 04/30/23 05:00 04/30/23 04:30 04/30/23 04:00 04/30/23 05:21 Room Air 04/30/23 03:30 100 04/30/23 03:00 100 04/30/23 02:30 100 04/30/23 01:42 100 04/30/23 01:42 04/30/23 01:49 97 Room Air 04/30/23 01:41 04/30/23 01:33 100 Room Air Pain Intensity Abdomen: Pain Intensity: 7 Transfer of Care Handoff Completed per policy Notes Mental Status: alert / awake / arousable and participated in evaluation Patient Amnestic to Procedure: Yes Nausea / Vomiting: adequately controlled Pain: adequately controlled Airway Patency, RR, SpO2: stable & adequate BP & HR: stable & adequate Hydration State: stable & adequate Anesthetic Complications: no major complications apparent and Pt Satisfied with anesthetic care
[2023-05-01] MEDS ORDERED: ENOXAPARIN INJ 40 MG/0.4 ML SYR SQ SCH (07:00)
--- NOTE | 2023-05-01 07:20 | Electrocardiogram Report ---
Test Reason : Blood Pressure : / mmHG Vent. Rate : 067 BPM Atrial Rate : 067 BPM P-R Int : 162 ms QRS Dur : 098 ms QT Int : 452 ms P-R-T Axes : 065 095 041 degrees QTc Int : 477 ms Normal sinus rhythm with sinus arrhythmia Rightward axis Borderline ECG No previous ECGs available Confirmed by Johnathon Gaming ([id number]) on 05/01/2023 7:20:15 AM Referred By: REFERRED SELF Confirmed By:Johnathon Gaming
== END 2023-04-30 16:27 | disposition home or self-care (01) ==
LOC: ED 01:28 → OR 05:21 → 3E 05:21
DX: K35.80 Unspecified acute appendicitis